=== PATIENT | male | born 1995 | race American Indian/Alaskan Native ===

== ENCOUNTER 2019-11-12 07:25 | Emergency (ER) | payer SELFPAY ==
--- NOTE | 2019-11-12 07:46 | Emergency Department Report ---
HPI - General Chief Complaint: Urogenital-Male Time Seen by Provider: 11/12/19 07:35 - HPI HPI: Room 6 The patient is a 24-year-old male presenting with a chief complaint of left testicle pain. The patient states he awakened evening of 11/09/2019 with pain in the left testicle. Patient describes the pain as a pressure and states it has been constant since its onset. Patient admits to nausea but denies vomiting. Patient states he has little discomfort when he urinates scribing feeling a pressure "of flow." Patient denies hematuria, fever or penile discharge. Patient states he had some mild mid back pain the day or 2 prior to the testicle pain but none currently. Patient currently gets his testicle pain score 5-6/10 Location: [See above] Duration: [See above] Quality: [See above] Severity: [See above] Timing: [See above] Context: [See above] Modifying factors: [See above] Associated signs and symptoms: [see above] ED Past Medical Hx - Past Medical History Previous Medical History?: No - Surgical History Past Surgical History?: Yes Additional Surgical History: Left ACL surgery - Family History Family history: no significant - Social History Smoking Status: Never Smoker Substance Use Type: None - Medications Home Medications: Home Medications Medication Instructions Recorded Confirmed Last Taken Type Ibuprofen [Motrin 800 MG tab] 800 mg PO Q8HR PRN #20 tablet 11/12/19 Unknown Rx ED Review of Systems ROS: Stated complaint: TESTICLE DISCOMFORT Other details as noted in HPI Constitutional: denies: fever Eyes: denies: eye pain ENT: denies: throat pain Respiratory: no symptoms reported Cardiovascular: denies: chest pain Endocrine: no symptoms reported Gastrointestinal: abdominal pain, nausea. denies: vomiting Genitourinary: dysuria, testicular pain. denies: discharge Musculoskeletal: back pain Neurological: denies: headache Physical Exam - Physical Exam Vital Signs: Vital Signs 11/12/19 07:28 Temperature 98.1 F Pulse Rate 90 Respiratory 18 Rate Blood Pressure 148/102 O2 Sat by Pulse 97 Oximetry Physical Exam: GENERAL: The patient is well-developed well-nourished male sitting on stretcher not appearing to be in acute distress. [] HEENT: Normocephalic. Atraumatic. Extraocular motions are intact. Patient has moist mucous membranes. NECK: Supple. Trachea midline CHEST/LUNGS: Clear to auscultation. There is no respiratory distress noted. HEART/CARDIOVASCULAR: Regular. There is no tachycardia. There is no gallop rub or murmur. ABDOMEN: Abdomen is soft, nontender. Patient has normal bowel sounds. There is no abdominal distention. SKIN: There is no rash. There is no edema. There is no diaphoresis. NEURO: The patient is awake, alert, and oriented. The patient is cooperative. The patient has normal speech MUSCULOSKELETAL: There is no evidence of acute injury. Genitourinary: Normal cremasteric reflex on the left ED Course Vital Signs 11/12/19 07:28 Temperature 98.1 F Pulse Rate 90 Respiratory 18 Rate Blood Pressure 148/102 O2 Sat by Pulse 97 Oximetry ED Medical Decision Making - Lab Data Laboratory Tests 11/12/19 Unknown Urine Color Yellow Urine Turbidity Clear Urine pH 5.0 Ur Specific [place] 1.026 Urine Protein <15 mg/dl Urine Glucose (UA) Neg Urine Ketones Neg Urine Blood Neg Urine Nitrite Neg Urine Bilirubin Neg Urine Urobilinogen < 2.0 Ur Leukocyte Esterase Tr Urine WBC (Auto) 4.0 Urine RBC (Auto) 3.0 U Epithel Cells (Auto) < 1.0 Urine Mucus Few - Radiology Data Radiology results: report reviewed (testicular ultrasound), image reviewed (testicular ultrasound) [address] [address] Ultrasound Report Signed Patient: HANNA AVILA MR#: [id number] : Acct:[id number] Age/Sex: 24 / M ADM Date: 11/12/19 Loc: ED Attending Dr: Ordering Physician: FRED GAONA MD Date of Service: 11/12/19 Procedure(s): US testicular doppler comp Accession Number(s): [id number] cc: FRED GAONA MD Testicular Doppler. 11/12/2019. HISTORY: Scrotal pain. FINDINGS: Right testicle measures 5.3 x 2.7 x 3.7 cm. Left testicle measures 5.5 x 2.5 x 3 cm. Echotexture is homogeneous. Negative for mass. Both testicles demonstrate appropriate flow. A small left hydrocele is present. IMPRESSION: Small left hydrocele. Signer Name: Pablo Haynes MD Signed: 11/12/2019 8:50 AM Workstation Name: [id number] Transcribed By: ES Dictated By: Pablo Haynes MD Electronically Authenticated By: Pablo Haynes MD Signed Date/Time: 11/12/19849 DD/ 8 TD/TT: - Medical Decision Making Results discussed with patient. Patient given strong warnings to return for repeat ultrasound should he develop worsening testicular pain - Differential Diagnosis testicular torsion, epididymitis, Critical care attestation.: If time is entered above; I have spent that time in minutes in the direct care of this critically ill patient, excluding procedure time. ED Disposition Clinical Impression: Left testicular pain, Hydrocele, left Disposition: DC- TO HOME OR SELFCARE Is pt being admited?: No Does the pt Need Aspirin: No Condition: Stable Instructions: Testicle Pain (ED), Hydrocele (ED) Additional Instructions: Return to the emergency department should you develop worsening symptoms, inability to tolerate food or liquids, high fever or any other concerns Prescriptions: Ibuprofen [Motrin 800 MG tab] 800 mg PO Q8HR PRN #20 tablet PRN Reason: Pain, Moderate (4-6) Referrals: DIVYA GONGORA MD [Staff Physician] - 3-5 Days (Dr Gongora is a urologist. Please follow-up with him for further evaluation) Time of Disposition: 09:48
--- NOTE | 2019-11-12 08:55 | Ultrasound Report ---
Testicular Doppler. 11/12/2019. HISTORY: Scrotal pain. FINDINGS: Right testicle measures 5.3 x 2.7 x 3.7 cm. Left testicle measures 5.5 x 2.5 x 3 cm. Echotexture is h omogeneous. Negative for mass. Both testicles demonstrate appropriate flow. A small left hydrocele is present. IMPRESSION: Small left hydrocele. Signer Name: Pablo Haynes MD Signed: 11/12/2019 8:50 AM Workstation Name: [id number]
[2019-11-12 09:12] LABS: Bilirubin,Urine NEG (Negative); Blood,Urine NEG (Negative); Color,Urine Yellow (Yellow); Mucus,Urine FEW /HPF; Protein,Urine <15 mg/dL mg/dL (Negative); Urobilinogen,Urine < 2.0 mg/dL (<2.0)
[2019-11-12 10:02] VITALS: BP 121/53
== END 2019-11-12 10:02 | disposition home or self-care (01) ==
LOC: ED 07:25
DX: N43.3 Hydrocele, unspecified (principal); R11.0 Nausea; Z98.890 Other specified postprocedural states
CPT/HCPCS: 81001; 93975